=== PATIENT | male | born 1935 | race Two or more races ===

== ENCOUNTER 2022-09-25 10:08 | Emergency (ER) | payer OTHER ==
[~2022-09-25] VITALS: Ht 182.9 cm; Wt 90.0 kg
[~2022-09-25 10:08] MED LIST: ACET-6 PO; ASPI81CH59 PO; ATOR20TA50 PO; GENT0.1C3 TOP; GLIP5TAB12 PO; HYDR12.56 PO; LEVO750T8 PO; LISI-716 PO; METF-371 PO; RIVA10TA PO
[2022-09-25 11:17] LABS: Basophils # (auto) 0 10 ^3/uL (0-0.2); Basophils % (auto) 0.2 % (0.0-2.0); Eosinophils # (auto) 0.1 10 ^3/uL (0-0.8); Hematocrit 34.1 % (41.0-53.0); Hemoglobin 11.2 g/dL (13.5-17.5); Lymphocytes # (auto) 1.4 10 ^3/uL (0.4-5.4); Mean Corpuscular Hemoglobin 28.2 pg (28.0-32.0); Mean Corpuscular Hgb Conc. 32.8 g/dL (32.0-36.0); Monocytes # (auto) 0.5 10 ^3/uL (0-1.3); Monocytes % (auto) 8.8 % (0.0-12.0); Neutrophils # (auto) 3.5 10 ^3/uL (1.6-8.6); Nucleated Red Blood Cells % 0.1 %; Red Blood Cells 3.96 10^6/uL (4.5-5.90); Red Cell Distribution Width 12.8 % (11.8-14.3); White Blood Cell 5.5 10^3/uL (4.4-10.8)
[2022-09-25 11:32] LABS: Albumin 3.6 g/dL (3.4-5.0); Calcium 9.1 mg/dL (8.5-10.1); Potassium 4.3 mmol/L (3.5-5.1)
[2022-09-25 11:40] LABS: BUN/Creatinine Ratio 31.1; Bilirubin, Total 0.9 mg/dL (0.2-1.0)
[2022-09-25 12:50] VITALS: BP 101/48
== END 2022-09-25 12:53 | disposition home or self-care (01) ==
LOC: ER 10:08 → EDBD 10:08 → ER 12:52
DX: R53.1 Weakness (principal); I10 Essential (primary) hypertension; E11.9 Type 2 diabetes mellitus without complications; M54.2 Cervicalgia; W18.09XA Striking against other object with subsequent fall, initial encounter; Y93.89 Activity, other specified; Y92.89 Other specified places as the place of occurrence of the external cause; Y99.8 Other external cause status
CPT/HCPCS: 36415; 70450; 71045; 72125; 80053; 84484; 85025; 93005

== ENCOUNTER 2023-01-12 04:00 | Inpatient (IN) | payer MEDICAID, OTHER ==
[~2023-01-12] VITALS: Ht 182.9 cm; Wt 120.1 kg
[2023-01-12 04:30] LABS: Basophils # (auto) 0 10 ^3/uL (0-0.2); Basophils % (auto) 0.4 % (0.0-2.0); Eosinophils # (auto) 0 10 ^3/uL (0-0.8); Eosinophils % (auto) 0.7 % (0.0-7.0); Hemoglobin 10.2 g/dL (13.5-17.5); Lymphocytes # (auto) 0.8 10 ^3/uL (0.4-5.4); Lymphocytes % (auto) 18.1 % (10.0-50.0); Mean Corpuscular Hgb Conc. 31.7 g/dL (32.0-36.0); Mean Corpuscular Volume 85.1 fL (80.0-100.0); Monocytes # (auto) 0.4 10 ^3/uL (0-1.3); Monocytes % (auto) 8.8 % (0.0-12.0); Nucleated Red Blood Cells % 0.1 %; Red Blood Cells 3.76 10^6/uL (4.5-5.90); Red Cell Distribution Width 14.8 % (11.8-14.3); White Blood Cell 4.2 10^3/uL (4.4-10.8)
[2023-01-12 04:59] LABS: INR 1.04 (0.9-1.15)
[2023-01-12 05:17] LABS: Partial Thromboplastin Time 87.6 sec (24.6-33.4)
[2023-01-12 06:24] LABS: Albumin 3.3 g/dL (3.4-5.0); BUN/Creatinine Ratio 18.3 (10.0-20.0); Magnesium 2.7 mg/dL (1.6-2.6)
[2023-01-12 06:27] LABS: Bilirubin, Total 0.5 mg/dL (0.2-1.0); Total Protein 8.5 g/dL (6.4-8.2)
[2023-01-12 06:28] LABS: Potassium 5.9 mmol/L (3.5-5.1)
[2023-01-12] MEDS ORDERED: SODIUM CHLORIDE 0.9% 1,000 ML IV ONE (06:45)
[2023-01-12 07:40] LABS: Urine WBC None Seen /hpf (0 - 3)
[2023-01-12 08:09] LABS: Urine Bacteria NONE SEEN /hpf (None Seen); Urine Blood Negative /uL (Negative); Urine Specific Gravity 1.012 (1.001-1.035)
[2023-01-12] MEDS ORDERED: SODIUM ZIRCONIUM CYCL 10 GM PAK PO ONE (09:30)
[2023-01-12] MEDS ORDERED: ALBUTEROL SULF 2.5 MG/0.5ML(0.5%) NEB SOLN NEB ONE (09:30)
[2023-01-12] MEDS ORDERED: InsuLIN REG 1unit/0.01ml Soln (100units/ml) IV ONE (09:30)
[2023-01-12] MEDS ORDERED: DEXTROSE (50%) 50ML SYRG IV ONE (09:30)
[2023-01-12] MEDS ORDERED: ACETAMINOPHEN 325 MG TAB PO PRN (09:45)
[2023-01-12] MEDS ORDERED: DEXTROSE (50%) 50ML SYRG IV PRN (09:45)
[2023-01-12] MEDS ORDERED: NITROGLYCERIN 0.4 MG SL TAB SL PRN (09:45)
[2023-01-12] MEDS ORDERED: HYDROcodone-ACET 5/325MG TAB PO PRN (09:45)
[2023-01-12] MEDS ORDERED: MORPHINE SULFATE INJ 2 MG/ml SYRG IV PRN ×2 (09:45)
[2023-01-12] MEDS ORDERED: SODIUM CHLORIDE 0.9% 1,000 ML IV SCH (09:45)
[2023-01-12] MEDS ORDERED: DEXTROSE (25%) 10 ML SYRG IV ONE (10:00)
[2023-01-12] MEDS ORDERED: ATORVASTATIN 20 MG TAB PO SCH (10:00)
[2023-01-12] MEDS: InsuLIN REG 1unit/0.01ml Soln (100units/ml) SC SCH ×3 (11:30→22:00)
[2023-01-12] MEDS: ACCU-CHEK COMFORT CURVE STRIP VI SCH ×3 (11:37→22:29)
[2023-01-12] MEDS ORDERED: DEXTROSE 10% 250 ML IV ONE (11:39)
[2023-01-12 12:30] LABS: BUN/Creatinine Ratio 17.3 (10.0-20.0); Calcium 9.2 mg/dL (8.5-10.1); Potassium 4.5 mmol/L (3.5-5.1)
[2023-01-12] MEDS: SODIUM CHLORIDE 0.9% 1,000 ML IV SCH (15:41)
[2023-01-12] MEDS: CLOTRIMAZOLE 1 % CREAM 15GM TOP SCH (22:00)
[2023-01-12] MEDS ORDERED: GLIM-5 PO (23:19)
[2023-01-13 05:00] VITALS: BP 110/63
[2023-01-13] MEDS: SODIUM CHLORIDE 0.9% 1,000 ML IV SCH ×2 (06:47→17:55)
[2023-01-13] MEDS: ACCU-CHEK COMFORT CURVE STRIP VI SCH ×4 (06:47→21:44)
[2023-01-13] MEDS: InsuLIN REG 1unit/0.01ml Soln (100units/ml) SC SCH ×4 (06:48→21:46)
[2023-01-13 09:09] VITALS: BP 120/63
[2023-01-13 12:32] LABS: Basophils # (auto) 0 10 ^3/uL (0-0.2); Basophils % (auto) 0.3 % (0.0-2.0); Eosinophils # (auto) 0.1 10 ^3/uL (0-0.8); Eosinophils % (auto) 2.2 % (0.0-7.0); Hematocrit 34.1 % (41.0-53.0); Hemoglobin 10.5 g/dL (13.5-17.5); Lymphocytes # (auto) 1.1 10 ^3/uL (0.4-5.4); Lymphocytes % (auto) 26.5 % (10.0-50.0); Mean Corpuscular Hgb Conc. 30.7 g/dL (32.0-36.0); Mean Corpuscular Volume 84.6 fL (80.0-100.0); Monocytes # (auto) 0.5 10 ^3/uL (0-1.3); Monocytes % (auto) 12.6 % (0.0-12.0); Neutrophils # (auto) 2.4 10 ^3/uL (1.6-8.6); Neutrophils % (auto) 58.4 % (37.0-80.0); Nucleated Red Blood Cells % 0.2 %; Red Blood Cells 4.03 10^6/uL (4.5-5.90); Red Cell Distribution Width 14.8 % (11.8-14.3); White Blood Cell 4.1 10^3/uL (4.4-10.8)
[2023-01-13 12:56] LABS: BUN/Creatinine Ratio 16.4 (10.0-20.0); Calcium 9.5 mg/dL (8.5-10.1); Potassium 5.5 mmol/L (3.5-5.1)
[2023-01-13 13:00] VITALS: BP 125/94
[2023-01-13] MEDS ORDERED: FUROSEMIDE 40 MG/4 ML VIAL IV ONE (13:15)
[2023-01-13] MEDS: CLOTRIMAZOLE 1 % CREAM 15GM TOP SCH ×2 (14:35→21:44)
[2023-01-13 17:09] VITALS: BP 107/69
[2023-01-13] MEDS ORDERED: SODIUM ZIRCONIUM CYCL 10 GM PAK PO ONE (18:30)
[2023-01-13 21:59] VITALS: BP 116/59
[2023-01-13] MEDS: ATORVASTATIN 20 MG TAB PO SCH (22:00)
[2023-01-14 05:00] VITALS: BP 129/78
[2023-01-14 06:14] LABS: Basophils # (auto) 0 10 ^3/uL (0-0.2); Basophils % (auto) 0.3 % (0.0-2.0); Eosinophils # (auto) 0.1 10 ^3/uL (0-0.8); Eosinophils % (auto) 2.6 % (0.0-7.0); Lymphocytes # (auto) 1.1 10 ^3/uL (0.4-5.4); Mean Corpuscular Hemoglobin 26.7 pg (28.0-32.0); Mean Corpuscular Volume 83.8 fL (80.0-100.0); Monocytes # (auto) 0.4 10 ^3/uL (0-1.3); Neutrophils # (auto) 1.8 10 ^3/uL (1.6-8.6); Red Cell Distribution Width 15.3 % (11.8-14.3)
[2023-01-14 06:16] LABS: Hematocrit 32.6 % (41.0-53.0); Hemoglobin 10.4 g/dL (13.5-17.5); Lymphocytes % (auto) 31.6 % (10.0-50.0); Mean Corpuscular Hgb Conc. 31.9 g/dL (32.0-36.0); Monocytes % (auto) 11.9 % (0.0-12.0); Neutrophils % (auto) 53.6 % (37.0-80.0); Nucleated Red Blood Cells % 0.1 %; White Blood Cell 3.4 10^3/uL (4.4-10.8)
[2023-01-14] MEDS: InsuLIN REG 1unit/0.01ml Soln (100units/ml) SC SCH ×4 (06:20→21:40)
[2023-01-14] MEDS: ACCU-CHEK COMFORT CURVE STRIP VI SCH ×4 (06:20→21:44)
[2023-01-14 06:28] LABS: BUN/Creatinine Ratio 14.6 (10.0-20.0); Calcium 9.4 mg/dL (8.5-10.1); Potassium 4.6 mmol/L (3.5-5.1)
[2023-01-14] MEDS: SODIUM CHLORIDE 0.9% 1,000 ML IV SCH ×2 (07:15→21:44)
[2023-01-14 08:30] VITALS: BP 126/78
[2023-01-14 09:00] VITALS: BP 126/78
[2023-01-14] MEDS: CLOTRIMAZOLE 1 % CREAM 15GM TOP SCH ×2 (09:07→21:44)
[2023-01-14 13:00] VITALS: BP 110/62
[2023-01-14 17:00] VITALS: BP 110/53
[2023-01-14] MEDS: ATORVASTATIN 20 MG TAB PO SCH (21:44)
[2023-01-14 21:45] VITALS: BP 116/62
[2023-01-14 22:39] LABS: Folate (Folic Acid) 13.2 ng/mL (5.38-24)
[2023-01-15 04:59] VITALS: BP 117/73
[2023-01-15 06:35] LABS: Basophils # (auto) 0 10 ^3/uL (0-0.2); Basophils % (auto) 0.3 % (0.0-2.0); Eosinophils # (auto) 0.1 10 ^3/uL (0-0.8); Eosinophils % (auto) 1.5 % (0.0-7.0); Hematocrit 35.5 % (41.0-53.0); Hemoglobin 11.3 g/dL (13.5-17.5); Lymphocytes # (auto) 1.4 10 ^3/uL (0.4-5.4); Lymphocytes % (auto) 29.3 % (10.0-50.0); Mean Corpuscular Hemoglobin 27.3 pg (28.0-32.0); Mean Corpuscular Hgb Conc. 31.8 g/dL (32.0-36.0); Mean Corpuscular Volume 85.9 fL (80.0-100.0); Monocytes # (auto) 0.5 10 ^3/uL (0-1.3); Monocytes % (auto) 11.2 % (0.0-12.0); Neutrophils # (auto) 2.8 10 ^3/uL (1.6-8.6); Neutrophils % (auto) 57.7 % (37.0-80.0); Nucleated Red Blood Cells % 0.2 %; Red Blood Cells 4.14 10^6/uL (4.5-5.90); Red Cell Distribution Width 15.4 % (11.8-14.3); White Blood Cell 4.8 10^3/uL (4.4-10.8)
[2023-01-15 06:40] LABS: Potassium 4.5 mmol/L (3.5-5.1)
[2023-01-15 06:49] LABS: BUN/Creatinine Ratio 13.4 (10.0-20.0); Calcium 9.7 mg/dL (8.5-10.1)
[2023-01-15] MEDS: InsuLIN REG 1unit/0.01ml Soln (100units/ml) SC SCH ×4 (06:51→21:34)
[2023-01-15] MEDS: ACCU-CHEK COMFORT CURVE STRIP VI SCH ×4 (06:51→21:35)
[2023-01-15 09:01] VITALS: BP 127/72
[2023-01-15] MEDS: SODIUM CHLORIDE 0.9% 1,000 ML IV SCH (09:55)
[2023-01-15] MEDS: CLOTRIMAZOLE 1 % CREAM 15GM TOP SCH ×2 (10:10→21:34)
[2023-01-15 12:48] VITALS: BP 123/66
[2023-01-15] MEDS ORDERED: DEXTROSE 10% 250 ML Bag IV PRN (17:15)
[2023-01-15] MEDS ORDERED: CLOT1CRE56 TOP (17:24)
[2023-01-15] MEDS ORDERED: METF-371 PO (17:25)
[2023-01-15] MEDS: ATORVASTATIN 20 MG TAB PO SCH (21:35)
[2023-01-15 22:00] VITALS: BP 111/63
[2023-01-16] MEDS: SODIUM CHLORIDE 0.9% 1,000 ML IV SCH ×2 (00:13→12:35)
[2023-01-16 04:51] VITALS: BP 111/60
[2023-01-16 06:33] LABS: Anion Gap 6 (5-15); BUN/Creatinine Ratio 11.4 (10.0-20.0); Blood Urea Nitrogen 15 mg/dL (7-18); Calcium 9.8 mg/dL (8.5-10.1); Carbon Dioxide 21 mmol/L (21-32); Chloride 118 mmol/L (98-107); GFR African American 66 mL/min; GFR Non-African American 55 mL/min; Glucose 113 mg/dL (74-106); Potassium 4.2 mmol/L (3.5-5.1); Sodium 145 mmol/L (136-145)
[2023-01-16] MEDS: InsuLIN REG 1unit/0.01ml Soln (100units/ml) SC SCH ×4 (06:39→21:32)
[2023-01-16] MEDS: ACCU-CHEK COMFORT CURVE STRIP VI SCH ×4 (06:39→21:55)
[2023-01-16 06:53] LABS: Basophils # (auto) 0 10 ^3/uL (0-0.2); Basophils % (auto) 0.3 % (0.0-2.0); Eosinophils # (auto) 0.1 10 ^3/uL (0-0.8); Eosinophils % (auto) 2.4 % (0.0-7.0); Hematocrit 34.8 % (41.0-53.0); Hemoglobin 10.9 g/dL (13.5-17.5); Lymphocytes # (auto) 1.4 10 ^3/uL (0.4-5.4); Lymphocytes % (auto) 34.8 % (10.0-50.0); Mean Corpuscular Hemoglobin 26.5 pg (28.0-32.0); Mean Corpuscular Hgb Conc. 31.3 g/dL (32.0-36.0); Mean Corpuscular Volume 84.6 fL (80.0-100.0); Monocytes # (auto) 0.4 10 ^3/uL (0-1.3); Monocytes % (auto) 10.9 % (0.0-12.0); Neutrophils # (auto) 2.1 10 ^3/uL (1.6-8.6); Neutrophils % (auto) 51.6 % (37.0-80.0); Nucleated Red Blood Cells % 0.2 %; Red Blood Cells 4.11 10^6/uL (4.5-5.90); Red Cell Distribution Width 15.6 % (11.8-14.3); White Blood Cell 4.1 10^3/uL (4.4-10.8)
[2023-01-16 09:16] VITALS: BP 102/66
[2023-01-16] MEDS: ASPirin 81 mg TAB PO SCH (09:31)
[2023-01-16] MEDS: CLOTRIMAZOLE 1 % CREAM 15GM TOP SCH ×2 (09:32→21:55)
[2023-01-16 13:30] VITALS: BP 101/81
[2023-01-16 16:58] VITALS: BP 105/79
[2023-01-16 21:45] VITALS: BP 126/67
[2023-01-16] MEDS: ATORVASTATIN 20 MG TAB PO SCH (21:55)
[2023-01-17] MEDS: SODIUM CHLORIDE 0.9% 1,000 ML IV SCH ×2 (01:55→15:15)
[2023-01-17 04:43] VITALS: BP 108/58
[2023-01-17] MEDS: ACCU-CHEK COMFORT CURVE STRIP VI SCH ×4 (06:45→22:00)
[2023-01-17] MEDS: InsuLIN REG 1unit/0.01ml Soln (100units/ml) SC SCH ×4 (06:45→22:00)
[2023-01-17 09:00] VITALS: BP 94/41
[2023-01-17] MEDS: ASPirin 81 mg TAB PO SCH (09:13)
[2023-01-17] MEDS: CLOTRIMAZOLE 1 % CREAM 15GM TOP SCH ×2 (09:15→22:00)
[2023-01-17 13:00] VITALS: BP 106/54
[2023-01-17 17:00] VITALS: BP 120/58
[2023-01-17] MEDS: Glucerna Carbsteady SHAKE Vanilla 8oz PO SCH (18:18)
[2023-01-17 22:00] VITALS: BP 99/67
[2023-01-17] MEDS: ATORVASTATIN 20 MG TAB PO SCH (22:00)
[2023-01-18] MEDS: SODIUM CHLORIDE 0.9% 1,000 ML IV SCH ×2 (04:35→18:12)
[2023-01-18 05:00] VITALS: BP 114/68
[2023-01-18] MEDS: InsuLIN REG 1unit/0.01ml Soln (100units/ml) SC SCH ×4 (06:10→20:41)
[2023-01-18] MEDS: ACCU-CHEK COMFORT CURVE STRIP VI SCH ×3 (06:10→17:32)
[2023-01-18] MEDS: Glucerna Carbsteady SHAKE Vanilla 8oz PO SCH ×2 (07:57→18:12)
[2023-01-18 08:00] VITALS: BP 126/58
[2023-01-18] MEDS: CLOTRIMAZOLE 1 % CREAM 15GM TOP SCH ×2 (09:33→22:00)
[2023-01-18] MEDS: ASPirin 81 mg TAB PO SCH (09:33)
[2023-01-18 13:00] VITALS: BP 108/54
[2023-01-18] MEDS: ATORVASTATIN 20 MG TAB PO SCH (20:40)
[2023-01-18 22:00] VITALS: BP 113/36
[2023-01-19 05:00] VITALS: BP 115/47
[2023-01-19] MEDS: ACCU-CHEK COMFORT CURVE STRIP VI SCH ×5 (07:00→22:39)
[2023-01-19] MEDS: InsuLIN REG 1unit/0.01ml Soln (100units/ml) SC SCH ×4 (07:00→22:40)
[2023-01-19] MEDS: SODIUM CHLORIDE 0.9% 1,000 ML IV SCH ×3 (08:40→20:35)
[2023-01-19] MEDS: Glucerna Carbsteady SHAKE Vanilla 8oz PO SCH ×2 (08:41→18:54)
[2023-01-19 08:55] VITALS: BP 101/43
[2023-01-19] MEDS: ASPirin 81 mg TAB PO SCH (09:56)
[2023-01-19] MEDS: CLOTRIMAZOLE 1 % CREAM 15GM TOP SCH ×2 (09:57→22:39)
[2023-01-19 13:00] VITALS: BP 128/77
[2023-01-19 15:00] VITALS: BP 133/46
[2023-01-19 22:10] VITALS: BP 112/40
[2023-01-19] MEDS: ATORVASTATIN 20 MG TAB PO SCH (22:38)
[2023-01-20 03:49] VITALS: BP 106/61
[2023-01-20] MEDS: ACCU-CHEK COMFORT CURVE STRIP VI SCH ×4 (07:10→21:28)
[2023-01-20] MEDS: InsuLIN REG 1unit/0.01ml Soln (100units/ml) SC SCH ×4 (07:11→21:55)
[2023-01-20] MEDS: Glucerna Carbsteady SHAKE Vanilla 8oz PO SCH ×2 (08:00→18:01)
[2023-01-20 08:58] VITALS: BP 115/56
[2023-01-20] MEDS: SODIUM CHLORIDE 0.9% 1,000 ML IV SCH ×2 (09:55→21:55)
[2023-01-20] MEDS: ASPirin 81 mg TAB PO SCH (09:57)
[2023-01-20] MEDS: CLOTRIMAZOLE 1 % CREAM 15GM TOP SCH ×2 (09:59→21:28)
[2023-01-20 12:30] VITALS: BP 101/60
[2023-01-20 16:55] VITALS: BP 108/56
[2023-01-20] MEDS: ATORVASTATIN 20 MG TAB PO SCH (21:28)
[2023-01-20 22:00] VITALS: BP 139/61
[2023-01-21 05:00] VITALS: BP 113/53
[2023-01-21] MEDS: InsuLIN REG 1unit/0.01ml Soln (100units/ml) SC SCH ×4 (06:22→21:39)
[2023-01-21] MEDS: ACCU-CHEK COMFORT CURVE STRIP VI SCH ×4 (06:22→21:37)
[2023-01-21] MEDS: Glucerna Carbsteady SHAKE Vanilla 8oz PO SCH ×2 (08:00→18:25)
[2023-01-21 09:00] VITALS: BP 95/50
[2023-01-21] MEDS: CLOTRIMAZOLE 1 % CREAM 15GM TOP SCH ×2 (10:26→21:27)
[2023-01-21] MEDS: ASPirin 81 mg TAB PO SCH (10:26)
[2023-01-21] MEDS: SODIUM CHLORIDE 0.9% 1,000 ML IV SCH (11:51)
[2023-01-21 12:47] VITALS: BP 110/64
[2023-01-21 16:37] VITALS: BP 124/58
[2023-01-21] MEDS: ATORVASTATIN 20 MG TAB PO SCH (21:26)
[2023-01-21 22:03] VITALS: BP 107/51
[2023-01-22] MEDS: SODIUM CHLORIDE 0.9% 1,000 ML IV SCH ×2 (01:55→18:12)
[2023-01-22 05:00] VITALS: BP 107/60
[2023-01-22] MEDS: ACCU-CHEK COMFORT CURVE STRIP VI SCH ×5 (06:08→22:08)
[2023-01-22] MEDS: InsuLIN REG 1unit/0.01ml Soln (100units/ml) SC SCH ×4 (06:13→22:07)
[2023-01-22] MEDS: Glucerna Carbsteady SHAKE Vanilla 8oz PO SCH ×2 (08:01→18:12)
[2023-01-22 09:00] VITALS: BP 116/47
[2023-01-22] MEDS: CLOTRIMAZOLE 1 % CREAM 15GM TOP SCH ×2 (09:10→22:07)
[2023-01-22] MEDS: ASPirin 81 mg TAB PO SCH (09:10)
[2023-01-22 17:00] VITALS: BP 107/58
[2023-01-22] MEDS: ATORVASTATIN 20 MG TAB PO SCH (21:46)
[2023-01-23] MEDS: SODIUM CHLORIDE 0.9% 1,000 ML IV SCH ×2 (04:35→17:55)
[2023-01-23 05:00] VITALS: BP 117/61
[2023-01-23] MEDS: InsuLIN REG 1unit/0.01ml Soln (100units/ml) SC SCH ×4 (06:36→21:37)
[2023-01-23 09:16] VITALS: BP 127/62
[2023-01-23] MEDS: Glucerna Carbsteady SHAKE Vanilla 8oz PO SCH ×2 (10:39→18:03)
[2023-01-23] MEDS: CLOTRIMAZOLE 1 % CREAM 15GM TOP SCH ×2 (11:42→22:00)
[2023-01-23] MEDS: ASPirin 81 mg TAB PO SCH (11:42)
[2023-01-23] MEDS: ACCU-CHEK COMFORT CURVE STRIP VI SCH ×3 (11:55→22:23)
[2023-01-23 14:06] VITALS: BP 127/55
[2023-01-23 17:00] VITALS: BP 111/58
[2023-01-23] MEDS: ATORVASTATIN 20 MG TAB PO SCH (21:26)
[2023-01-24] MEDS: SODIUM CHLORIDE 0.9% 1,000 ML IV SCH (00:32)
[2023-01-24 05:00] VITALS: BP 98/59
[2023-01-24 06:23] LABS: Albumin 2.5 g/dL (3.4-5.0); Calcium 9.2 mg/dL (8.5-10.1); Potassium 3.9 mmol/L (3.5-5.1)
[2023-01-24 06:28] LABS: BUN/Creatinine Ratio 23.7 (10.0-20.0); Bilirubin, Total 0.5 mg/dL (0.2-1.0)
[2023-01-24] MEDS: ACCU-CHEK COMFORT CURVE STRIP VI SCH ×4 (06:40→22:02)
[2023-01-24] MEDS: InsuLIN REG 1unit/0.01ml Soln (100units/ml) SC SCH ×4 (06:40→22:00)
[2023-01-24] MEDS: Glucerna Carbsteady SHAKE Vanilla 8oz PO SCH ×2 (12:46→18:19)
[2023-01-24] MEDS: ASPirin 81 mg TAB PO SCH (12:47)
[2023-01-24] MEDS ORDERED: SOD CHL 0.45% 1,000 ML IV ONE (13:00)
[2023-01-24 17:00] VITALS: BP 134/61
[2023-01-24 22:00] VITALS: BP 97/50
[2023-01-24] MEDS: ATORVASTATIN 20 MG TAB PO SCH (22:03)
[2023-01-25 05:00] VITALS: BP 95/51
[2023-01-25] MEDS: InsuLIN REG 1unit/0.01ml Soln (100units/ml) SC SCH ×4 (06:21→23:22)
[2023-01-25] MEDS: ACCU-CHEK COMFORT CURVE STRIP VI SCH ×4 (06:21→22:00)
[2023-01-25 07:54] LABS: Potassium 3.7 mmol/L (3.5-5.1)
[2023-01-25] MEDS: Glucerna Carbsteady SHAKE Vanilla 8oz PO SCH ×2 (07:59→08:00)
[2023-01-25 08:03] LABS: Albumin 2.6 g/dL (3.4-5.0); BUN/Creatinine Ratio 19.3 (10.0-20.0); Bilirubin, Total 0.4 mg/dL (0.2-1.0); Calcium 9.2 mg/dL (8.5-10.1); Total Protein 6.3 g/dL (6.4-8.2)
[2023-01-25 09:00] VITALS: BP 125/61
[2023-01-25] MEDS: ASPirin 81 mg TAB PO SCH (10:06)
[2023-01-25 13:00] VITALS: BP 108/50
[2023-01-25 17:00] VITALS: BP 127/53
[2023-01-25 22:00] VITALS: BP 115/49
[2023-01-25] MEDS: ATORVASTATIN 20 MG TAB PO SCH (23:13)
[2023-01-26 05:00] VITALS: BP 120/51
[2023-01-26] MEDS: ACCU-CHEK COMFORT CURVE STRIP VI SCH ×4 (06:27→22:21)
[2023-01-26] MEDS: InsuLIN REG 1unit/0.01ml Soln (100units/ml) SC SCH ×3 (06:27→17:00)
[2023-01-26] MEDS: Glucerna Carbsteady SHAKE Vanilla 8oz PO SCH ×2 (08:00→17:42)
[2023-01-26] MEDS: ASPirin 81 mg TAB PO SCH (09:30)
[2023-01-26 18:20] LABS: Calcium 8.8 mg/dL (8.5-10.1); Potassium 3.7 mmol/L (3.5-5.1)
[2023-01-26] MEDS: ATORVASTATIN 20 MG TAB PO SCH (22:21)
[2023-01-27] MEDS: InsuLIN REG 1unit/0.01ml Soln (100units/ml) SC SCH ×4 (06:30→22:00)
[2023-01-27] MEDS: ACCU-CHEK COMFORT CURVE STRIP VI SCH ×4 (06:31→22:00)
[2023-01-27] MEDS: Glucerna Carbsteady SHAKE Vanilla 8oz PO SCH ×2 (08:00→18:00)
[2023-01-27] MEDS: ASPirin 81 mg TAB PO SCH (09:05)
[2023-01-27 12:30] VITALS: BP 126/62
[2023-01-27 17:05] VITALS: BP 117/66
[2023-01-27 22:00] VITALS: BP 92/60
[2023-01-27] MEDS: ATORVASTATIN 20 MG TAB PO SCH (22:37)
[2023-01-28] MEDS: InsuLIN REG 1unit/0.01ml Soln (100units/ml) SC SCH ×4 (06:00→21:52)
[2023-01-28] MEDS: ACCU-CHEK COMFORT CURVE STRIP VI SCH ×4 (06:00→21:53)
[2023-01-28] MEDS: Glucerna Carbsteady SHAKE Vanilla 8oz PO SCH ×2 (08:00→18:00)
[2023-01-28] MEDS: ASPirin 81 mg TAB PO SCH (09:20)
[2023-01-28 10:06] VITALS: BP 110/44
[2023-01-28 12:46] VITALS: BP 118/52
[2023-01-28 16:30] VITALS: BP 125/55
[2023-01-28] MEDS: ATORVASTATIN 20 MG TAB PO SCH (21:52)
[2023-01-28 22:00] VITALS: BP 117/47
[2023-01-29 05:00] VITALS: BP 130/51
[2023-01-29] MEDS: InsuLIN REG 1unit/0.01ml Soln (100units/ml) SC SCH ×4 (06:20→20:42)
[2023-01-29] MEDS: ACCU-CHEK COMFORT CURVE STRIP VI SCH ×4 (06:20→20:43)
[2023-01-29] MEDS: Glucerna Carbsteady SHAKE Vanilla 8oz PO SCH ×2 (08:51→18:00)
[2023-01-29] MEDS: ASPirin 81 mg TAB PO SCH (08:52)
[2023-01-29 09:00] VITALS: BP 112/54
[2023-01-29 13:00] VITALS: BP 126/63
[2023-01-29 17:00] VITALS: BP 133/74
[2023-01-29] MEDS: ATORVASTATIN 20 MG TAB PO SCH (20:36)
[2023-01-29 22:00] VITALS: BP 147/45
[2023-01-30 05:00] VITALS: BP 123/50
[2023-01-30] MEDS: ACCU-CHEK COMFORT CURVE STRIP VI SCH ×4 (05:43→22:12)
[2023-01-30] MEDS: InsuLIN REG 1unit/0.01ml Soln (100units/ml) SC SCH ×4 (05:48→22:08)
[2023-01-30 09:00] VITALS: BP 94/47
[2023-01-30] MEDS: Glucerna Carbsteady SHAKE Vanilla 8oz PO SCH ×2 (09:12→17:19)
[2023-01-30] MEDS: ASPirin 81 mg TAB PO SCH (09:12)
[2023-01-30 13:00] VITALS: BP 116/62
[2023-01-30 17:19] VITALS: BP 131/60
[2023-01-30 22:00] VITALS: BP 121/68
[2023-01-30] MEDS: ATORVASTATIN 20 MG TAB PO SCH (22:00)
[2023-01-31 05:00] VITALS: BP 106/49
[2023-01-31] MEDS: ACCU-CHEK COMFORT CURVE STRIP VI SCH ×4 (06:43→21:46)
[2023-01-31] MEDS: InsuLIN REG 1unit/0.01ml Soln (100units/ml) SC SCH ×4 (06:47→21:42)
[2023-01-31 09:00] VITALS: BP 123/61
[2023-01-31] MEDS: ASPirin 81 mg TAB PO SCH (10:14)
[2023-01-31] MEDS: Glucerna Carbsteady SHAKE Vanilla 8oz PO SCH ×2 (11:04→17:43)
[2023-01-31 12:58] VITALS: BP 121/65
[2023-01-31 17:00] VITALS: BP 131/65
[2023-01-31] MEDS: ATORVASTATIN 20 MG TAB PO SCH (21:44)
[2023-01-31 22:20] VITALS: BP 121/65
[2023-02-01 05:51] VITALS: BP 126/58
[2023-02-01] MEDS: ACCU-CHEK COMFORT CURVE STRIP VI SCH ×3 (06:04→18:08)
[2023-02-01] MEDS: InsuLIN REG 1unit/0.01ml Soln (100units/ml) SC SCH ×3 (06:05→17:00)
[2023-02-01] MEDS: Glucerna Carbsteady SHAKE Vanilla 8oz PO SCH ×2 (08:00→18:07)
[2023-02-01 09:00] VITALS: BP 101/33
[2023-02-01] MEDS: ASPirin 81 mg TAB PO SCH (10:02)
[2023-02-01 13:00] VITALS: BP 119/50
[2023-02-01 13:02] VITALS: BP 125/94
[2023-02-01 17:00] VITALS: BP 118/49
== END 2023-02-01 20:30 | disposition home health service (06) | DRG 422 ==
LOC: ER 04:00 → EDBD 04:00 → TELE 10:09 → TELE-WESTW 22:45
PROVIDERS: ADMIT Internal Medicine; ATTEND Internal Medicine
PROC: 4A00X4Z Measurement of Central Nervous Electrical Activity, External Approach (ICD-10-PCS; principal; 2023-01-16)
DX: E86.0 Dehydration (principal); G93.41 Metabolic encephalopathy; N17.9 Acute kidney failure, unspecified; E87.20 Acidosis, unspecified; L97.509 Non-pressure chronic ulcer of other part of unspecified foot with unspecified severity; E11.22 Type 2 diabetes mellitus with diabetic chronic kidney disease; E11.51 Type 2 diabetes mellitus with diabetic peripheral angiopathy without gangrene; D64.9 Anemia, unspecified; E11.621 Type 2 diabetes mellitus with foot ulcer; Z20.822 Contact with and (suspected) exposure to COVID-19; E87.5 Hyperkalemia; I12.9 Hypertensive chronic kidney disease with stage 1 through stage 4 chronic kidney disease, or unspecified chronic kidney disease; F03.C0 Unspecified dementia, severe, without behavioral disturbance, psychotic disturbance, mood disturbance, and anxiety; N18.30 Chronic kidney disease, stage 3 unspecified; F17.200 Nicotine dependence, unspecified, uncomplicated; E11.65 Type 2 diabetes mellitus with hyperglycemia; Z79.4 Long term (current) use of insulin
CPT/HCPCS: 36415; 70450; 70551; 71045; 76775; 80048; 80053; 81001; 82140; 82306; 82550; 82607; 82746; 82962; 83735; 83970; 84100; 84484; 85025; 85610; 85730; 87040; 87426; 93005; 93306; 93926; 94640; 95819; 96361; 96374; 97110; 97116; 97163; 97530; G0378; J1815